=== PATIENT | female | born 1945 | race Caucasian/White ===

== ENCOUNTER 2020-03-03 04:04 | Emergency (ER) | payer MEDICARE, BC ==
[2020-03-03] MEDS ORDERED: Sodium Chloride 0.9% 1,000 ML IV ONE (04:29)
[2020-03-03] MEDS ORDERED: Metoprolol Tartrate 5 MG/5 ML SDV IVPUSH ONE (04:30)
[2020-03-03] MEDS ORDERED: Diphtheria,Pertussis(Acell),Tetanus Vaccine 0.5 ML Syringe IM ONE (04:36)
[2020-03-03 05:01] LABS: BLOOD UREA NITROGEN,BUN 11 mg/dL (7.0-18.0); CARBON DIOXIDE,CO2 28.4 mmol/L (21.0-32.0); CHLORIDE,CL 102 mmol/L (98-107); GLUCOSE RANDOM 158 mg/dL (74-106); POTASSIUM,K 4.1 mmol/L (3.5-5.1); SODIUM,NA 137 mmol/L (136-145)
[2020-03-03] MEDS ORDERED: Metoprolol Succinate 25 MG Tab.ER PO ONE (05:17)
--- NOTE | 2020-03-03 05:29 | CT ---
INDICATION: Fall, laceration near right eye. TECHNIQUE: CT head without contrast. COMPARISON: None. FINDINGS: CSF spaces: Within normal limits for age. Brain parenchyma: No intracranial bleed or mass effect. Peres-white differentiation is preserved. Moderate low density in the deep white matter. Skull base and calvarium: The visualized paranasal sinuses and mastoid air cells demonstrate no acute or significant findings. The visualized orbits are grossly unremarkable. No skull fractures. Right periorbital scalp hematoma. IMPRESSION: 1. Right periorbital scalp hematoma without calvarial fracture or intracranial bleed. 2. Nonspecific white matter disease, likely microangiopathy. Please note that all CT scans at this facility use dose modulation, iterative reconstruction, and/or weight-based dosing when appropriate to reduce radiation dose to as low as reasonably achievable. Dictated by Meño Flowers MD @ Mar 03 2020 5:25AM Signed by Dr. Meño Flowers @ Mar 03 2020 5:28AM
--- NOTE | 2020-03-03 05:42 | EDM.PDOC ---
ED HPI GENERAL MEDICAL PROBLEM - General Chief Complaint: Head Injury Stated Complaint: FALL Time Seen by Provider: 03/03/20 04:06 Source of Information: Reports: Patient History Limitations: Reports: No Limitations - History of Present Illness INITIAL COMMENTS - FREE TEXT/NARRATIVE: Patient is a 74-year-old female who fell while getting up to go the bathroom. Patient denies fainting. She was using her walker and somehow got tangled up and fell. She states she has trouble with her balance all the time. Patient denies any headache but has obvious contusion with laceration to her right cheek. She denies any neck pain or chest pain or palpitations. Patient presents with a fast heart rate in the 130s-140s but does not have any symptoms that she is having a fast heart rate. Patient has not been feeling lightheaded or short of breath or diaphoretic. Denies any injuries to any other part of her body other than her knee on the right side but has been able to walk since her fall. She is on a baby aspirin but no other blood thinners. She denies all neurological symptoms. She has had no bloody or tarry stools. Onset: Today, Sudden Location: Reports: Face Quality: Reports: Ache Severity: Mild Improves with: Reports: None Worsens with: Reports: None Context: Reports: Trauma Associated Symptoms: Reports: No Other Symptoms R cheek Pain Score (Numeric/FACES): 8 - Related Data Allergies Allergy/AdvReac Type Severity Reaction Status Date / Time No Known Allergies Allergy Verified 03/03/20 04:25 Home Meds: Home Meds Aspirin [Aspirin EC] 81 mg PO DAILY 03/03/20 [History] Metoprolol Succinate [Toprol XL] 25 mg PO BEDTIME #30 tab.er 03/03/20 [Rx] Past Medical History Musculoskeletal History: Reports: None - Past Surgical History Musculoskeletal Surgical History: Reports: Knee Replacement, Shoulder Replacement, Other (See Below) Other Musculoskeletal Surgeries/Procedures:: bilateral shoulders and bilateral knees Social & Family History - Family History Family Medical History: Noncontributory - Tobacco Use Smoking Status *Q: Never Smoker Second Hand Smoke Exposure: No - Caffeine Use Caffeine Use: Reports: Coffee - Recreational Drug Use Recreational Drug Use: No ED ROS GENERAL - Review of Systems Review Of Systems: Comprehensive ROS is negative, except as noted in HPI. ED EXAM, HEAD INJURY - Physical Exam Exam: See Below Exam Limited By: No Limitations General Appearance: Alert, No Apparent Distress Head: Facial Lacerations, Facial Swelling Neck: Non-Tender, Full Range of Motion Respiratory: No Respiratory Distress, Lungs Clear, Normal Breath Sounds Cardiovascular: No JVD, No Murmur, Tachycardia GI/Abdominal Exam: Normal Bowel Sounds, Soft, Non-Tender Back Exam: Normal Inspection Extremities: No Pedal Edema, Leg Pain, Redness, Other (All findings at right knee. She has full range of motion of the knee. 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 Patient tolerated procedure well. This was done under technique and her skin was cleaned with Betadine solution. Good approximation of wound edges. Patient CT of her head shows no brain injury. Her lab work was all within normal limits. Patient single dose of Lopressor 5 mg IV slowed her heart rate down to the 80s. Patient feels fine and I will discharge her home with a prescription for Toprol XL. She is given wound care discharge instructions and advised to return in 5 days for suture removal. Last Recorded V/S: Last Vital Signs Temp 36.0 C L 03/03/20 04:04 Pulse 111 H 03/03/20 05:05 Resp 20 03/03/20 05:05 BP 130/70 03/03/20 05:05 Pulse Ox 97 03/03/20 05:05 - Orders/Labs/Meds Orders: Active Orders 24 hr Category Date Time Status Vaccines to be Administered [RC] PER UNIT ROUTINE Care 03/03/20 04:36 Active UA W/MICROSCOPIC [URIN] Stat Lab 03/03/20 04:27 Ordered Sodium Chloride 0.9% [Normal Saline] 1,000 ml Med 03/03/20 04:29 Active IV .Bolus Medication Orders Sodium Chloride (Normal Saline) 1,000 mls @ 500 mls/hr IV .Bolus ONE Stop: 03/03/20 06:28 Last Admin: 03/03/20 04:36 Dose: 500 mls/hr Labs: Laboratory Tests 03/03/20 03/03/20 Range/Units 04:26 04:26 WBC 10.34 (4.0-11.0) K/uL RBC 4.91 (4.30-5.90) M/uL Hgb 16.7 H (12.0-16.0) g/dL Hct 49.9 H (36.0-46.0) % MCV 101.6 H (80.0-98.0) fL MCH 34.0 H (27.0-32.0) pg MCHC 33.5 (31.0-37.0) g/dL RDW Std Deviation 58.5 (28.0-62.0) fl RDW Coeff of Lazaro 16 H (11.0-15.0) % Plt Count 113 L (150-400) K/uL MPV 11.80 (7.40-12.00) fL Neut % (Auto) 50.0 (48.0-80.0) % Lymph % (Auto) 41.8 H (16.0-40.0) % [place] % (Auto) 7.0 (0.0-15.0) % Eos % (Auto) 0.9 (0.0-7.0) % Baso % (Auto) 0.3 (0.0-1.5) % Neut # (Auto) 5.2 (1.4-5.7) K/uL Lymph # (Auto) 4.3 H (0.6-2.4) K/uL [place] # (Auto) 0.7 (0.0-0.8) K/uL Eos # (Auto) 0.1 (0.0-0.7) K/uL Baso # (Auto) 0.0 (0.0-0.1) K/uL Nucleated RBC % 0.0 /100WBC Nucleated RBCs # 0 K/uL Sodium 137 (136-145) mmol/L Potassium 4.1 (3.5-5.1) mmol/L Chloride 102 (98-107) mmol/L Carbon Dioxide 28.4 (21.0-32.0) mmol/L BUN 11 (7.0-18.0) mg/dL Creatinine 1.1 H (0.6-1.0) mg/dL Est Cr Clr Drug Dosing TNP Estimated GFR (MDRD) 48.3 ml/min Glucose 158 H (74-106) mg/dL Calcium 10.7 H (8.5-10.1) mg/dL Total Bilirubin 1.1 H (0.2-1.0) mg/dL AST 122 H (15-37) IU/L ALT 49 (14-63) IU/L Alkaline Phosphatase 165 H (46-116) U/L Troponin I < 0.050 (0.000-0.056) ng/mL Total Protein 6.4 (6.4-8.2) g/dL Albumin 2.6 L (3.4-5.0) g/dL Globulin 3.8 (2.6-4.0) g/dL Albumin/Globulin Ratio 0.7 L (0.9-1.6) Meds: Medications Generic Name Dose Route Start Last Admin Trade Name Freq PRN Reason Stop Dose Admin Sodium Chloride 1,000 mls @ 500 mls/hr 03/03/20 04:29 03/03/20 04:36 Normal Saline IV 03/03/20 06:28 500 mls/hr .Bolus ONE Administration Discontinued Medications Generic Name Dose Route Start Last Admin Trade Name Freq PRN Reason Stop Dose Admin Diphtheria/Tetanus/Acell Pertussis 0.5 ml 03/03/20 04:36 03/03/20 04:42 Adacel IM 03/03/20 04:37 0.5 ml .ONCE ONE Administration Lidocaine HCl 5 ml 03/03/20 04:32 03/03/20 04:41 Xylocaine-Mpf 1% INJECT 03/03/20 04:33 5 ml ONETIME ONE Administration Metoprolol Succinate 25 mg 03/03/20 05:17 Toprol Xl PO 03/03/20 05:18 ONETIME ONE Metoprolol Tartrate 5 mg 03/03/20 04:30 03/03/20 04:37 Lopressor IVPUSH 03/03/20 04:31 5 mg ONETIME ONE Administration Departure - Departure Time of Disposition: 05:45 Disposition: Home, Self-Care 01 Condition: Good Clinical Impression: Laceration of face, Tachycardia - Discharge Information Instructions: Wound Care, Adult, Sinus Tachycardia Referrals: Jesse Sadler MD [Primary Care Provider] - Additional Instructions: Toprol as prescribed. Follow-up with PCP for recheck week. Suture removal in 5 days. Antibiotic ointment light coat twice a day. Return to ER sooner if any sign of infection. Ice pack to face for swelling. Tylenol as needed. Care Plan Goals: The following information is given to patients seen in the emergency department who are being discharged to home. This information is to outline your options for follow-up care. We provide all patients seen in our emergency department with a follow-up referral. The need for follow-up, as well as the timing and circumstances, are variable depending upon the specifics of your emergency department visit. If you don't have a primary care physician on staff, we will provide you with a referral. We always advise you to contact your personal physician following an emergency department visit to inform them of the circumstance of the visit and for follow-up with them and/or the need for any referrals to a consulting specialist. The emergency department will also refer you to a specialist when appropriate. This referral assures that you have the opportunity for follow-up care with a specialist. All of these measure are taken in an effort to provide you with optimal care, which includes your follow-up. Under all circumstances we always encourage you to contact your private physician who remains a resource for coordinating your care. When calling for follow-up care, please make the office aware that this follow-up is from your recent emergency room visit. If for any reason you are refused follow-up, please contact the [facility] Emergency Department at and asked to speak to the emergency department charge nurse. Sepsis Event Note - Evaluation Sepsis Screening Result: No Definite Risk - Focused Exam Vital Signs: Vital Signs Temp Pulse Pulse Resp BP BP Pulse Ox 03/03/20 05:05 111 H 20 130/70 97 03/03/20 04:37 137 H 123/75 03/03/20 04:04 36.0 C L 145 H 21 H 138/74 97 Date Exam was Performed: 03/03/20 Time Exam was Performed: 05:37 - My Orders Last 24 Hours: My Active Orders 03/03/20 04:27 UA W/MICROSCOPIC [URIN] Stat 03/03/20 04:29 Sodium Chloride 0.9% [Normal Saline] 1,000 ml IV .Bolus 03/03/20 04:36 Vaccines to be Administered [RC] PER UNIT ROUTINE - Assessment/Plan Last 24 Hours: My Active Orders 03/03/20 04:27 UA W/MICROSCOPIC [URIN] Stat 03/03/20 04:29 Sodium Chloride 0.9% [Normal Saline] 1,000 ml IV .Bolus 03/03/20 04:36 Vaccines to be Administered [RC] PER UNIT ROUTINE
== END 2020-03-03 06:02 | disposition home or self-care (01) ==
LOC: MW.ED 04:04
DX: S01.81XA Laceration without foreign body of other part of head, initial encounter (principal); Z23 Encounter for immunization; R00.0 Tachycardia, unspecified; Z79.82 Long term (current) use of aspirin; Z79.899 Other long term (current) drug therapy; W19.XXXA Unspecified fall, initial encounter
CPT/HCPCS: 12011; 36415; 70450; 80053; 84484; 85025; 90471; 90715; 93005; 96361; 96374; 99285; J2001; J3490; J7030; 99282

== ENCOUNTER 2020-04-01 11:18 | Emergency (ER) | payer MEDICARE, BC ==
[2020-04-01] MEDS ORDERED: Sodium Chloride 0.9% 10 ML Syringe FLUSH PRN (11:35)
[2020-04-01] MEDS ORDERED: Sodium Chloride 0.9% 2.5 ML Syringe FLUSH PRN (11:35)
[2020-04-01] MEDS ORDERED: Sodium Chloride 0.9% 10 ML SDV IV PRN (11:35)
--- NOTE | 2020-04-01 11:40 | EDM.PDOC ---
ED HPI GENERAL MEDICAL PROBLEM - General Chief Complaint: Neurological Problem Stated Complaint: STROKE CODE Time Seen by Provider: 04/01/20 11:20 - History of Present Illness INITIAL COMMENTS - FREE TEXT/NARRATIVE: HISTORY AND PHYSICAL: History of present illness: 74-year-old female who presents emergency department complaint of altered mental status. Multiple falls at home. Last time known well was yesterday in the afternoon before she started falling. She complains that she does not know why she is falling. She has some slurred speech. She appears slightly lethargic. She wakes up and stays awake mostly for the exam but then quickly falls asleep. Review of systems: A 10-point review of systems, other than pertinent positives and negatives as stated per HPI, is otherwise negative. Past medical history: As per history of present illness and as reviewed below otherwise noncontributory. Surgical history: As per history of present illness and as reviewed below otherwise noncontributory. Social history: No reported history of drug or alcohol abuse. Family history: As per history of present illness and as reviewed below otherwise noncontributory. Physical exam: VITAL SIGNS: Reviewed. GENERAL: Falls asleep easily. Eye opening to voice, slurred speech is mild, otherwise nonfocal and obeys commands HEAD: No signs of head trauma. EYES: Pupils are equal. Extraocular motions intact. EARS: Hearing grossly intact. MOUTH: Oropharynx is normal. NECK: No adenopathy, no JVD. CHEST: Chest with clear breath sounds bilaterally. No wheezes, rales, or rhonchi. However breath sounds are quite distant in the bases CARDIAC: Irregularly irregular and tachycardic rhythm. S1-S2 are present. I do not appreciate a murmur. VASCULAR: Peripheral pulses normal and equal in all extremities. ABDOMEN: Soft, without detectable tenderness. No sign of distention. No rebound or guarding, and no masses palpated. MUSCULOSKELETAL: Good range of motion of all major joints. Extremities without clubbing, cyanosis or edema. NEUROLOGIC EXAM: Alert and oriented x 3. No focal sensory or motor deficits. Speech normal. Follows commands. PSYCHIATRIC: Mood normal. SKIN: No rash or lesions. Initial Differential Diagnosis & Plan: The patient has altered mental status and I considered the following entities in the differential diagnosis: hypoglycemia, electrolyte imbalance, head trauma , intracranial bleed or mass, meningitis sepsis, transient ischemic attack or stroke, toxidrome/intoxication/medication effect, seizure or postictal state, hepatic encephalopathy, acid/base disturbance, hypercapnia. Suspect strokelike symptoms however I will also check for hypercapnia with an ABG. Code stroke was initiated. NIH is a 2. Definitive disposition and diagnosis as appropriate pending reevaluation and review of above. - Related Data Allergies Allergy/AdvReac Type Severity Reaction Status Date / Time No Known Allergies Allergy Verified 04/01/20 12:11 Home Meds: Home Meds Aspirin [Aspirin EC] 81 mg PO DAILY 03/03/20 [History] Metoprolol Succinate [Toprol XL] 25 mg PO BEDTIME #30 tab.er 03/03/20 [Rx] Nitrofurantoin Monohyd/M-Cryst [Macrobid 100 mg Capsule] 100 mg PO BID 5 Days # 10 capsule 04/01/20 [Rx] Past Medical History Musculoskeletal History: Reports: None - Past Surgical History Musculoskeletal Surgical History: Reports: Knee Replacement, Shoulder Replacement, Other (See Below) Other Musculoskeletal Surgeries/Procedures:: bilateral shoulders and bilateral knees Social & Family History - Family History Family Medical History: Noncontributory - Caffeine Use Caffeine Use: Reports: Coffee ED ROS GENERAL - Review of Systems Review Of Systems: See Below (noted) ED EXAM, NEURO - Physical Exam Exam: See Below (noted) ED NEURO PROCEDURES - Additional/Other Procedure(s) Other (Free Text) Procedure(s): Procedure Note: Physician placed IV Due to difficult or critical IV access situation I have placed an IV for treatment and circulatory access. Location: Right antecubital fossa, 20-gauge angiocatheter using ultrasound guidance second attempt. Complications: None PROCEDURE: Ultrasound guidance of needle placement Indication: Guidance of needle for procedure Performed and interpreted by myself Findings: 1. Targeted structure identified 2. Distance from the skin noted 3. Surrounding vascular and nerve structures noted Interpretation: Ultrasound guidance of needle to increase safety and accuracy of procedure. Signed by Fantasma Mcduffie M.D. EKG INTERPRETATION EKG Interpretation Comments: 12 lead EKG interpretation Obtained: April 01, 2020 at 11:40 AM Rhythm: Sinus tachycardia Rate: 115 Comfrey: Comfrey deviation Intervals: Normal ST/T Segments: No acute ischemic changes Interpretation: Sinus tachycardia with left axis deviation Course - Vital Signs Last Recorded V/S: Last Vital Signs Temp 96.6 F L 04/01/20 11:18 Pulse 113 H 04/01/20 11:18 Resp 17 04/01/20 11:18 BP 141/80 H 04/01/20 11:18 Pulse Ox 99 04/01/20 11:35 - Orders/Labs/Meds Orders: Active Orders 24 hr Category Date Time Status Assess Neurological Status [RC] ASDIRECTED Care 04/01/20 11:35 Active Bedrest [RC] ASDIRECTED Care 04/01/20 11:35 Active Blood Glucose Check, Bedside [RC] ONETIME Care 04/01/20 11:35 Active Cardiac Monitoring [RC] . DIRECTED Care 04/01/20 11:35 Active EKG Documentation Completion [RC] STAT Care 04/01/20 11:35 Active Head of Bed Elevation [RC] ASDIRECTED Care 04/01/20 11:35 Active Height and Weight [RC] UPON Care 04/01/20 11:35 Active Initiate Acute Stroke Protocol [RC] STAT Care 04/01/20 11:35 Active NIH Stroke Scale [RC] ASDIRECTED Care 04/01/20 11:35 Active Nursing Bedside Swallow Screen [RC] ASDIRECTED Care 04/01/20 11:35 Active Oxygen Therapy [RC] ASDIRECTED Care 04/01/20 11:35 Active Stroke Education, General [RC] Click to Edit Care 04/01/20 11:35 Active Vital Signs [RC] Q15M Care 04/01/20 11:35 Active Sodium Chloride 0.9% [Normal Saline] Med 04/01/20 11:35 Active 10 ml IV ASDIRECTED PRN Sodium Chloride 0.9% [Saline Flush] Med 04/01/20 11:35 Active 10 ml FLUSH ASDIRECTED PRN Sodium Chloride 0.9% [Saline Flush] Med 04/01/20 11:35 Active 2.5 ml FLUSH ASDIRECTED PRN Peripheral IV Insertion Adult [OM.PC] Stat Oth 04/01/20 11:35 Ordered Peripheral IV Insertion Adult [OM.PC] Stat Oth 04/01/20 11:35 Ordered Medication Orders Sodium Chloride (Saline Flush) 10 ml FLUSH ASDIRECTED PRN PRN Reason: Keep Vein Open Sodium Chloride (Saline Flush) 2.5 ml FLUSH ASDIRECTED PRN PRN Reason: Keep Vein Open Sodium Chloride (Normal Saline) 10 ml IV ASDIRECTED PRN PRN Reason: IV Use Labs: Laboratory Tests 04/01/20 04/01/20 04/01/20 Range/Units 12:23 12:23 12:23 WBC 12.03 H (4.0-11.0) K/uL RBC 4.75 (4.30-5.90) M/uL Hgb 16.8 H (12.0-16.0) g/dL Hct 49.1 H (36.0-46.0) % MCV 103.4 H (80.0-98.0) fL MCH 35.4 H (27.0-32.0) pg MCHC 34.2 (31.0-37.0) g/dL RDW Std Deviation 60.0 (28.0-62.0) fl RDW Coeff of Lazaro 16 H (11.0-15.0) % Plt Count 123 L (150-400) K/uL MPV 11.90 (7.40-12.00) fL Neut % (Auto) 66.9 (48.0-80.0) % Lymph % (Auto) 24.8 (16.0-40.0) % [place] % (Auto) 7.7 (0.0-15.0) % Eos % (Auto) 0.4 (0.0-7.0) % Baso % (Auto) 0.2 (0.0-1.5) % Neut # (Auto) 8.0 H (1.4-5.7) K/uL Lymph # (Auto) 3.0 H (0.6-2.4) K/uL [place] # (Auto) 0.9 H (0.0-0.8) K/uL Eos # (Auto) 0.1 (0.0-0.7) K/uL Baso # (Auto) 0.0 (0.0-0.1) K/uL Nucleated RBC % 0.0 /100WBC Nucleated RBCs # 0 K/uL INR 1.30 APTT 27.3 (18.6-31.3) SEC ABG pH (7.35-7.45) ABG pCO2 (35-45) mmHG ABG pO2 (75-100) mmHG ABG HCO3 (22-26) mEq/L ABG Total CO2 ABG Base Excess (-2.0-2.0) Sodium 135 L (136-145) mmol/L Potassium 4.5 (3.5-5.1) mmol/L Chloride 100 (98-107) mmol/L Carbon Dioxide 29.1 (21.0-32.0) mmol/L BUN 15 (7.0-18.0) mg/dL Creatinine 1.1 H (0.6-1.0) mg/dL Est Cr Clr Drug Dosing 37.57 mL/min Estimated GFR (MDRD) 48.3 ml/min Glucose 144 H (74-106) mg/dL Calcium 11.4 H (8.5-10.1) mg/dL Total Bilirubin 1.7 H (0.2-1.0) mg/dL AST 115 H (15-37) IU/L ALT 42 (14-63) IU/L Alkaline Phosphatase 175 H (46-116) U/L Troponin I < 0.050 (0.000-0.056) ng/mL Total Protein 6.3 L (6.4-8.2) g/dL Albumin 2.4 L (3.4-5.0) g/dL Globulin 3.9 (2.6-4.0) g/dL Albumin/Globulin Ratio 0.6 L (0.9-1.6) TSH 3rd Generation 4.80 H (0.36-3.74) uIU/mL Urine Color Urine Appearance Urine pH (5.0-8.0) Ur Specific [place] (1.001-1.035) Urine Protein (NEGATIVE) mg/dL Urine Glucose (UA) (NEGATIVE) mg/dL Urine Ketones (NEGATIVE) mg/dL Urine Occult Blood (NEGATIVE) Urine Nitrite (NEGATIVE) Urine Bilirubin (NEGATIVE) Urine Urobilinogen (<2.0) EU/dL Ur Leukocyte Esterase (NEGATIVE) Urine RBC (0-2/HPF) Urine WBC (0-5/HPF) Ur Epithelial Cells (NONE-FEW) Calcium Oxalate Crystal (NEGATIVE) Urine Bacteria (NEGATIVE) Urine Mucus (NONE-MOD) Ethyl Alcohol <3 mg/dL 04/01/20 04/01/20 Range/Units 12:55 15:36 WBC (4.0-11.0) K/uL RBC (4.30-5.90) M/uL Hgb (12.0-16.0) g/dL Hct (36.0-46.0) % MCV (80.0-98.0) fL MCH (27.0-32.0) pg MCHC (31.0-37.0) g/dL RDW Std Deviation (28.0-62.0) fl RDW Coeff of Lazaro (11.0-15.0) % Plt Count (150-400) K/uL MPV (7.40-12.00) fL Neut % (Auto) (48.0-80.0) % Lymph % (Auto) (16.0-40.0) % [place] % (Auto) (0.0-15.0) % Eos % (Auto) (0.0-7.0) % Baso % (Auto) (0.0-1.5) % Neut # (Auto) (1.4-5.7) K/uL Lymph # (Auto) (0.6-2.4) K/uL [place] # (Auto) (0.0-0.8) K/uL Eos # (Auto) (0.0-0.7) K/uL Baso # (Auto) (0.0-0.1) K/uL Nucleated RBC % /100WBC Nucleated RBCs # K/uL INR APTT (18.6-31.3) SEC ABG pH 7.466 H (7.35-7.45) ABG pCO2 39 (35-45) mmHG ABG pO2 65 L (75-100) mmHG ABG HCO3 28 H (22-26) mEq/L ABG Total CO2 23.8 ABG Base Excess 3.9 H (-2.0-2.0) Sodium (136-145) mmol/L Potassium (3.5-5.1) mmol/L Chloride (98-107) mmol/L Carbon Dioxide (21.0-32.0) mmol/L BUN (7.0-18.0) mg/dL Creatinine (0.6-1.0) mg/dL Est Cr Clr Drug Dosing mL/min Estimated GFR (MDRD) ml/min Glucose (74-106) mg/dL Calcium (8.5-10.1) mg/dL Total Bilirubin (0.2-1.0) mg/dL AST (15-37) IU/L ALT (14-63) IU/L Alkaline Phosphatase (46-116) U/L Troponin I (0.000-0.056) ng/mL Total Protein (6.4-8.2) g/dL Albumin (3.4-5.0) g/dL Globulin (2.6-4.0) g/dL Albumin/Globulin Ratio (0.9-1.6) TSH 3rd Generation (0.36-3.74) uIU/mL Urine Color YELLOW Urine Appearance CLEAR Urine pH 6.0 (5.0-8.0) Ur Specific [place] 1.010 (1.001-1.035) Urine Protein NEGATIVE (NEGATIVE) mg/dL Urine Glucose (UA) NEGATIVE (NEGATIVE) mg/dL Urine Ketones NEGATIVE (NEGATIVE) mg/dL Urine Occult Blood NEGATIVE (NEGATIVE) Urine Nitrite POSITIVE H (NEGATIVE) Urine Bilirubin NEGATIVE (NEGATIVE) Urine Urobilinogen 1.0 (<2.0) EU/dL Ur Leukocyte Esterase NEGATIVE (NEGATIVE) Urine RBC 0-2 (0-2/HPF) Urine WBC 0-3 (0-5/HPF) Ur Epithelial Cells OCCASIONAL (NONE-FEW) Calcium Oxalate Crystal RARE (NEGATIVE) Urine Bacteria 3+ H (NEGATIVE) Urine Mucus LIGHT (NONE-MOD) Ethyl Alcohol mg/dL Meds: Medications Generic Name Dose Route Start Last Admin Trade Name Freq PRN Reason Stop Dose Admin Sodium Chloride 10 ml 04/01/20 11:35 Saline Flush FLUSH ASDIRECTED PRN Keep Vein Open Sodium Chloride 2.5 ml 04/01/20 11:35 Saline Flush FLUSH ASDIRECTED PRN Keep Vein Open Sodium Chloride 10 ml 04/01/20 11:35 Normal Saline IV ASDIRECTED PRN IV Use Discontinued Medications Generic Name Dose Route Start Last Admin Trade Name Freq PRN Reason Stop Dose Admin Bupivacaine HCl 20 ml 04/01/20 15:50 Sensorcaine-Mpf 0.5% INJECT 04/01/20 15:51 ONETIME ONE Iopamidol 100 ml 04/01/20 15:13 04/01/20 15:17 Isovue Multipack-370 (76%) IVPUSH 04/01/20 15:14 100 ml ONETIME STA Administration - Re-Assessments/Exams Free Text/Narrative Re-Assessment/Exam: 06/04/20 16:04 Patient presented as a stroke code and was monitored in the emergency department. There is no evidence that the patient had an acute stroke. The cause of her decreased mental status is unclear. While she is here she is much more awake. She is quite insistent on going home. We will give her some Macrobid for her bacteriuria. She does not have pyuria. We will have her follow-up with her primary care doctor. The remainder of her labs are essentially normal. My diagnostic impression: 1. Acute altered mental status; resolved 2. Asymptomatic bacteriuria Agree bed. Offered admission. Patient is adamantly refusing. Departure - Departure Time of Disposition: 16:06 Disposition: Home, Self-Care 01 Clinical Impression: Weakness, Falls, Bacteriuria, asymptomatic - Discharge Information *PRESCRIPTION DRUG MONITORING PROGRAM REVIEWED*: Not Applicable *COPY OF PRESCRIPTION DRUG MONITORING REPORT IN PATIENT BANDAR: Not Applicable Instructions: Fatigue, Weakness, [id number], Asymptomatic Bacteriuria Referrals: Jesse Sadler MD [Primary Care Provider] - Forms: ED Department Discharge Additional Instructions: The following information is given to patients seen in the emergency department who are being discharged to home. This information is to outline your options for follow-up care. We provide all patients seen in our emergency department with a follow-up referral. The need for follow-up, as well as the timing and circumstances, are variable depending upon the specifics of your emergency department visit. If you don't have a primary care physician on staff, we will provide you with a referral. We always advise you to contact your personal physician following an emergency department visit to inform them of the circumstance of the visit and for follow-up with them and/or the need for any referrals to a consulting specialist. The emergency department will also refer you to a specialist when appropriate. This referral assures that you have the opportunity for follow-up care with a specialist. All of these measure are taken in an effort to provide you with optimal care, which includes your follow-up. Thank you for coming to the [facility] urgency department for your care today. It was Dr. Mcduffie's pleasure to take care of you. You were evaluated for possible stroke today given your weakness and fatigue when you arrived. There is no evidence of stroke. We were also concerned about infection and other causes. Your electrolyte panel, metabolic panel, and CBC are all essentially normal. You do have bacteria in your urine but no pus. We will give you a medication to help with that. We offered you admission today and you would like to go home. Please be careful as you are falling frequently. Please use her walker. Return for any other concerns. Under all circumstances we always encourage you to contact your private physician who remains a resource for coordinating your care. When calling for follow-up care, please make the office aware that this follow-up is from your recent emergency room visit. If for any reason you are refused follow-up, please contact the [facility] Emergency Department at and asked to speak to the emergency department charge nurse. Sepsis Event Note - Focused Exam Vital Signs: Vital Signs Temp Pulse Resp BP Pulse Ox Pulse Ox 04/01/20 11:35 99 04/01/20 11:18 96.6 F L 113 H 17 141/80 H 99 Date Exam was Performed: 04/01/20 Time Exam was Performed: 16:04 - My Orders Last 24 Hours: My Active Orders 04/01/20 11:35 Assess Neurological Status [RC] ASDIRECTED Bedrest [RC] ASDIRECTED Blood Glucose Check, Bedside [RC] ONETIME Cardiac Monitoring [RC] . DIRECTED EKG Documentation Completion [RC] STAT Head of Bed Elevation [RC] ASDIRECTED Height and Weight [RC] UPON Initiate Acute Stroke Protocol [RC] STAT NIH Stroke Scale [RC] ASDIRECTED Nursing Bedside Swallow Screen [RC] ASDIRECTED Oxygen Therapy [RC] ASDIRECTED Stroke Education, General [RC] Click to Edit Vital Signs [RC] Q15M Sodium Chloride 0.9% [Normal Saline] 10 ml IV ASDIRECTED PRN Sodium Chloride 0.9% [Saline Flush] 10 ml FLUSH ASDIRECTED PRN Sodium Chloride 0.9% [Saline Flush] 2.5 ml FLUSH ASDIRECTED PRN Peripheral IV Insertion Adult [OM.PC] Stat Peripheral IV Insertion Adult [OM.PC] Stat - Assessment/Plan Last 24 Hours: My Active Orders 04/01/20 11:35 Assess Neurological Status [RC] ASDIRECTED Bedrest [RC] ASDIRECTED Blood Glucose Check, Bedside [RC] ONETIME Cardiac Monitoring [RC] . DIRECTED EKG Documentation Completion [RC] STAT Head of Bed Elevation [RC] ASDIRECTED Height and Weight [RC] UPON Initiate Acute Stroke Protocol [RC] STAT NIH Stroke Scale [RC] ASDIRECTED Nursing Bedside Swallow Screen [RC] ASDIRECTED Oxygen Therapy [RC] ASDIRECTED Stroke Education, General [RC] Click to Edit Vital Signs [RC] Q15M Sodium Chloride 0.9% [Normal Saline] 10 ml IV ASDIRECTED PRN Sodium Chloride 0.9% [Saline Flush] 10 ml FLUSH ASDIRECTED PRN Sodium Chloride 0.9% [Saline Flush] 2.5 ml FLUSH ASDIRECTED PRN Peripheral IV Insertion Adult [OM.PC] Stat Peripheral IV Insertion Adult [OM.PC] Stat
--- NOTE | 2020-04-01 11:55 | CT ---
Head CT Technique: Multiple axial sections through the brain were obtained. Intravenous contrast was not utilized. Comparison: Prior head CT study of 03/03/20. Findings: Ventricles along with basal cisterns and sulci over convexities are mildly prominent. 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 Diminished density is noted within the periventricular white matter compatible with small vessel ischemic demyelination change. No other abnormal parenchymal densities are seen. No evidence of intracranial hemorrhage. No midline shift or mass-effect is seen. Minimal atherosclerotic calcification within the vertebral vessels and carotid siphon is seen. Bone window settings were reviewed. No acute calvarial finding is seen. Visualized paranasal sinuses and mastoid sinuses show nothing acute. Impression: 1. Senescent change as noted above. 2. No acute intracranial abnormality is appreciated. Note: Please correlate if patient's symptoms warrant further evaluation by MRI.
--- NOTE | 2020-04-01 13:11 | CR ---
Chest: Frontal view of the chest was obtained in AP projection. Comparison: No prior chest imaging is available. Heart size and mediastinum are within normal limits for AP technique. Lung markings are slightly increased. Findings could represent mild bronchitis or could also be chronic if patient has no acute pulmonary symptoms. 1 cm nodule is noted within the right mid to lower lung. Lungs otherwise are clear. Bony structures are grossly intact. Impression: 1. Lung markings mildly increased as described above. 2. 1 cm nodule within the right mid to lower lung, chest CT recommended to further evaluate. Diagnostic code #3 This report was dictated in MDT
[2020-04-01 13:17] LABS: BLOOD UREA NITROGEN,BUN 15 mg/dL (7.0-18.0); CARBON DIOXIDE,CO2 29.1 mmol/L (21.0-32.0); CHLORIDE,CL 100 mmol/L (98-107); GLUCOSE RANDOM 144 mg/dL (74-106); POTASSIUM,K 4.5 mmol/L (3.5-5.1); SODIUM,NA 135 mmol/L (136-145)
[2020-04-01] MEDS ORDERED: Iopamidol 755 MG/ML 500 ML Multipack Bottle IVPUSH STA (15:13)
--- NOTE | 2020-04-01 15:33 | CT ---
CT angiogram of brain Technique: Multiple axial sections through the brain were obtained. Intravenous contrast was utilized during the arterial phase. Multiple MIP images were obtained. Findings: Right A1 segment is somewhat narrowed which most likely represents mild atheromatous change. Left A1 segment is patent. Both anterior cerebral arteries are patent. Carotid siphon appears to be patent. Normal appearance of the middle cerebral arteries is noted. Dominant left vertebral artery is seen. Both distal vertebral arteries are patent and the basilar and into the posterior cerebral arteries. No other areas of narrowing are seen. No discrete aneurysm is appreciated. Impression: 1. Mild atherosclerotic narrowing of the right A1 segment. 2. Dominant left vertebral artery which is considered a normal variant. 3. No additional abnormality is seen on CT angiogram study of the brain. Diagnostic code #2 This report was dictated in MDT
--- NOTE | 2020-04-01 15:35 | CT ---
CT angiogram of neck (without and with intravenous contrast) Technique: Noncontrast imaging of the neck initially obtained. Intravenous contrast was given and imaging obtained during the arterial phase through the neck. Findings: Larger size of the left vertebral artery is seen compatible with dominant left vertebral artery. Smaller right vertebral artery is patent. No focal stenosis is seen within either vertebral artery. Both common cough carotid arteries are patent with patent external and internal carotid arteries. There is only minimal calcified plaque within the right carotid bulb. Internal carotid arteries are patent into the carotid siphon. No dissection is seen. Cervical spine shows diffuse degenerative change. Impression: 1. Diffuse degenerative change within the cervical spine. 2. Dominant left vertebral artery. Minimal calcified plaque within the right carotid bulb. 3. CT angiogram of the neck study is otherwise unremarkable. Diagnostic code #2 This report was dictated in MDT
[2020-04-01] MEDS ORDERED: Bupivacaine 0.5% 10 ML SDV INJECT ONE (15:50)
== END 2020-04-01 16:40 | disposition home or self-care (01) ==
LOC: MW.ED 11:18
DX: R53.1 Weakness (principal); R82.71 Bacteriuria; Z91.81 History of falling; Z79.82 Long term (current) use of aspirin; Z79.899 Other long term (current) drug therapy
CPT/HCPCS: 36600; 70450; 70496; 70498; 71045; 80053; 80307; 81001; 82803; 84443; 84484; 85025; 85610; 85730; 93005; 99285; Q9967; 99283

== ENCOUNTER 2020-04-08 14:45 | Inpatient (IN) | payer MEDICARE, BC ==
--- NOTE | 2020-04-08 16:24 | PCM.HP.2 ---
H&P History of Present Illness - General Date of Service: 04/08/20 Admit Problem/Dx: Admission Diagnosis/Problem Admission Diagnosis/Problem UTI (urinary tract infection), uncomplicated - History of Present Illness Initial Comments - Free Text/Narative: 74 yo female who was directly admitted from Dr. Su's clinic after presenting with complaints of generalized weakness, loss of apatite, and increasing confusion. Patient has recently completed a five day course of antibiotics for a UTI which she was prescribed to by ED physician. She was also started on lasix for lower leg swelling last week. She denies any shortness of breath, chest pain, fevers, or chills. In follow up with Dr. Su today he noted she was still slow to respond normally to questions and was still reporting no improvement in her energy. Patient has no concerns and does not think much is wrong with her. Dr. Su reported a calcium level of 11 and elevated LFTs. 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: Musculoskeletal History: Reports: Arthritis Dermatologic History: Reports: Other (See Below) Other Dermatologic History: redness to abd folds - Infectious Disease History Infectious Disease History: Reports: Chicken Pox, Measles - Past Surgical History HEENT Surgical History: Reports: Naso-Sinus Surgery Other Cardiovascular Surgeries/Procedures: Edema Female Surgical History: Reports: Hysterectomy Musculoskeletal Surgical History: Reports: Hip Replacement, Knee Replacement Other Musculoskeletal Surgeries/Procedures:: bilateral hips and bilateral knees Social & Family History - Family History Family Medical History: Noncontributory - Tobacco Use Smoking Status *Q: Never Smoker Second Hand Smoke Exposure: No - Caffeine Use Caffeine Use: Reports: Coffee - Recreational Drug Use Recreational Drug Use: No H&P Review of Systems - Review of Systems: Review Of Systems: Comprehensive ROS is negative, except as noted in HPI. Exam - Exam Exam: See Below - Vital Signs Vital Signs: Last Vital Signs Temp 37.3 C 04/08/20 14:57 Pulse 118 H 04/08/20 14:57 Resp 20 04/08/20 14:57 BP 144/68 H 04/08/20 14:57 Pulse Ox 94 L 04/08/20 14:57 Weight: 122.198 kg - Exam General: Alert, Cooperative HEENT: Mucosa Moist & [place] Neck: Supple Lungs: Clear to Auscultation, Normal Respiratory Effort Cardiovascular: Regular Rate, Regular Rhythm GI/Abdominal Exam: Normal Bowel Sounds, Soft, Non-Tender Extremities: Other (+2 leg edema) Skin: Warm, Dry, Intact, Other (large area of erythema under panus on flank bilaterally ) - Patient Data Result Diagrams: 04/09/20 05:26 04/09/20 05:26 Sepsis Event Note - Evaluation Sepsis Screening Result: No Definite Risk - Focused Exam Vital Signs: Vital Signs Temp Pulse Resp BP Pulse Ox 04/08/20 14:57 37.3 C 118 H 20 144/68 H 94 L Date Exam was Performed: 04/09/20 Time Exam was Performed: 15:29 Problem List Initiated/Reviewed/Updated: Yes Orders Last 24hrs: Active Orders 24 hr Category Date Time Status Patient Status [ADT] Routine ADT 04/08/20 16:15 Ordered Antiembolic Devices [RC] PER UNIT ROUTINE Care 04/08/20 16:17 Ordered Oxygen Therapy [RC] PRN Care 04/08/20 16:15 Ordered VTE/DVT Education [RC] PER UNIT ROUTINE Care 04/08/20 16:15 Ordered Vital Signs [RC] Q4H Care 04/08/20 16:15 Ordered Regular Diet [DIET] Diet 04/08/20 Breakfast Ordered Abdomen Ltd [US] Routine Exams 04/08/20 16:12 Ordered Abdomen Pelvis wo Cont [CT] Routine Exams 04/08/20 16:12 Ordered Chest wo Cont [CT] Routine Exams 04/08/20 16:12 Ordered Echo Comp wo Cont [US] Routine Exams 04/08/20 16:12 Ordered Venous Doppler Lwr Ext Bi [US] Routine Exams 04/08/20 16:12 Ordered CBC W/O DIFF,HEMOGRAM [HEME] AM Lab 04/09/20 05:11 Ordered COMPREHENSIVE METABOLIC PN,CMP [CHEM] AM Lab 04/09/20 05:11 Ordered COMPREHENSIVE METABOLIC PN,CMP [CHEM] Routine Lab 04/08/20 16:12 Ordered LIPASE [CHEM] Routine Lab 04/08/20 16:12 Ordered Nystatin [Nystop] Med 04/08/20 22:00 Ordered 1 gm TOP TID cefTRIAXone [Rocephin] Med 04/08/20 16:30 Ordered 1 gm IVPUSH Q24H Sequential Compression Device [OM.PC] Per Unit Routine Oth 04/08/20 16:16 Ordered Resuscitation Status Routine Resus Stat 04/08/20 16:15 Ordered Medication Orders Ceftriaxone Sodium (Rocephin) 1 gm IVPUSH Q24H [facility] Nystatin (Nystop) 1 gm TOP TID [facility] Assessment/Plan Comment:: 74 yo female admitted for UTI and cellulitis. UTI: [facility] has sent urine for culture, Will treat with IV Rocephin abdominal wall cellulitis: treating with Rocephin and nystatin powder bilateral leg edema: will check echocardiogram, leg dopplars, Mild transaminitis/mild hypercalcemia: I suspect patient may be intravascularly , will gently hydrate and hold lasix, liver ultrasound ordered.
[2020-04-08] MEDS ORDERED: Sodium Chloride 0.9% 1,000 ML IV SCH (16:30)
[2020-04-08] MEDS ORDERED: cefTRIAXone 1 GM Vial IVPUSH SCH (16:30)
[2020-04-08 17:15] LABS: CARBON DIOXIDE,CO2 29.8 mmol/L (21.0-32.0); POTASSIUM,K 4.6 mmol/L (3.5-5.1)
--- NOTE | 2020-04-08 17:26 | CT ---
CT chest Technique: Multiple axial sections through the chest were obtained. Reconstructed coronal and sagittal images were obtained. Intravenous contrast not utilized. Findings: Small mediastinal lymph nodes are seen measuring within normal limits. Calcified lymph nodes are noted within the subcarinal region and right hilar region. No pericardial thickening is seen. Aorta shows atherosclerotic calcification without aneurysm. Multiple pulmonary nodules are seen within both lungs. Largest nodule on the left side measures 1.0 cm in size. Largest nodule on the right side measures 1.0 cm. No acute parenchymal change otherwise seen. Bone window settings were reviewed. Degenerative change is noted within the spine. No acute osseous finding is seen. Impression: 1. Multiple nodules within the chest have the appearance of metastatic lung disease. 2. Other findings believed to be incidental as described above. Diagnostic code #9 This report was dictated in MDT
--- NOTE | 2020-04-08 17:26 | CT ---
CT abdomen and pelvis Technique: CT abdomen and pelvis Technique: Multiple axial sections were obtained from above the dome of the diaphragm inferiorly through the pubic symphysis. Intravenous and oral contrast not utilized. Comparison: No previous study. Findings: Multiple low density lesions are seen within the right and left lobes of the liver. Findings are most suspicious for metastatic disease. Small amount of fluid is seen around the spleen and the liver. Gallbladder is dilated. No discrete adrenal abnormality is seen. Kidneys show no hydronephrosis. Minimal nonobstructing stone noted within the lower right kidney measuring 1 or 2 mm. Pancreas shows no discrete abnormality. Aorta shows mild atherosclerotic change which continues into the iliac vessels without aneurysm. No retroperitoneal adenopathy is appreciated. No discrete mesenteric abnormalities are seen. No pelvic mass or adenopathy is seen. Pelvis is poorly seen due artifact from bilateral hip prosthesis. Appendix is not definitely visualized. Degenerative change is noted throughout the spine. Mild compression deformity seen with anterior wedging at L3. Prominent posterior spurring noted at L2-3. No acute osseous finding is seen. Impression: 1. Less than optimal study due to lack of intravenous and oral contrast. 2. Probable liver metastatic disease with multiple low density lesions within right and left lobes. 2. Small amount of ascites around the liver and spleen is noted. 3. Artifact within the pelvis from bilateral hip prosthesis. 4. Degenerative change within the spine as noted above. Diagnostic code #9 This report was dictated in MDT
[2020-04-08] MEDS: cefTRIAXone 1 GM in Premix Bag 1 BAG IV SCH (18:06)
--- NOTE | 2020-04-08 18:12 | US ---
Bilateral lower extremity deep venous ultrasound: Duplex and color Doppler evaluation was obtained of the right and left common femoral, superficial femoral, popliteal, posterior tibial and peroneal veins. Normal compression is seen. Normal Doppler blood flow appears to be present. Impression: 1. No evidence of deep venous thrombosis is seen within either the right or left lower extremities. Diagnostic code #1 This report was dictated in MDT
--- NOTE | 2020-04-08 18:20 | US ---
Limited abdominal ultrasound: Multiple real-time images of the upper right abdomen were obtained. Comparison: Previous CT study performed on the same day. Findings: Gallbladder is dilated and shows sludge. Liver is echogenic showing multiple masses as noted on CT exam. Gallbladder wall is minimally thickened which is not unusual with ascites. No biliary duct dilatation is seen. Right kidney measures 11.1 cm in length and shows no hydronephrosis or mass. Visualized portions of the pancreas show no discrete abnormality. Inferior vena cava is patent. Aorta shows no aneurysm. Impression: 1. Distended gallbladder showing a mild amount of sludge without gallstones. Gallbladder wall slightly thickened which is not unusual with ascites. No biliary duct dilatation is seen. 2. Liver masses as noted on CT exam suspicious for metastatic disease. 3. No additional abnormality is appreciated on right upper quadrant abdominal ultrasound. Diagnostic code #9 This report was dictated in MDT
[2020-04-08] MEDS: Nystatin Topical Powder 15 GM Bottle TOP SCH (22:25)
[2020-04-08] MEDS ORDERED: LORazepam 1 MG Tab PO PRN (23:21)
[2020-04-09] MEDS: Nystatin Topical Powder 15 GM Bottle TOP SCH ×3 (05:57→21:29)
[2020-04-09 06:29] LABS: POTASSIUM,K 3.8 mmol/L (3.5-5.1)
[2020-04-09] MEDS: cefTRIAXone 1 GM in Premix Bag 1 BAG IV SCH (16:29)
[2020-04-10] MEDS: Nystatin Topical Powder 15 GM Bottle TOP SCH ×3 (06:32→21:39)
--- NOTE | 2020-04-10 12:25 | PCM.PN ---
- General Info Date of Service: 04/09/20 - Patient Data Vitals - Most Recent: Last Vital Signs Temp 36.7 C 04/10/20 09:33 Pulse 87 04/10/20 09:33 Resp 18 04/10/20 09:33 BP 122/57 L 04/10/20 09:33 Pulse Ox 92 L 04/10/20 09:33 Weight - Most Recent: 122.198 kg I&O - Last 24 Hours: Intake & Output 04/09/20 04/10/20 04/10/20 22:59 06:59 14:59 Intake Total 120 650 Output Total 500 450 Balance -380 200 Med Orders - Current: Current Medications Ceftriaxone Sodium/Dextrose 1 (gm/ Premix) 50 mls @ 100 mls/hr IV Q24H [facility] Last Admin: 04/09/20 16:29 Dose: 100 mls/hr Lorazepam (Ativan) 1 mg PO BEDTIME PRN PRN Reason: Insomnia Last Admin: 04/09/20 01:23 Dose: 1 mg Nystatin (Nystop) 1 gm TOP TID [facility] Last Admin: 04/10/20 06:32 Dose: 1 applic Discontinued Medications Sodium Chloride (Normal Saline) 1,000 mls @ 75 mls/hr IV Q13H [facility] Stop: 04/09/20 05:29 Last Admin: 04/08/20 18:01 Dose: 75 mls/hr - Exam Neck: Supple Lungs: Clear to Auscultation, Normal Respiratory Effort Cardiovascular: Regular Rate, Regular Rhythm GI/Abdominal Exam: Normal Bowel Sounds, Soft, Non-Tender Extremities: Pedal Edema (+1) Skin: Warm, Dry, Intact Neurological: No New Focal Deficit Sepsis Event Note - Evaluation Sepsis Screening Result: No Definite Risk - Focused Exam Vital Signs: Vital Signs Temp Pulse Resp BP Pulse Ox 04/10/20 09:33 36.7 C 87 18 122/57 L 92 L 04/10/20 04:03 95 04/10/20 04:00 37.1 C 95 18 120/60 88 L Date Exam was Performed: 04/12/20 Time Exam was Performed: 19:57 - Problem List Review Problem List Initiated/Reviewed/Updated: Yes - My Orders Last 24 Hours: My Active Orders 04/09/20 16:12 Echo Comp wo Cont [US] Routine - Plan Plan:: 74 yo female admitted for UTI and cellulitis, found to multiple lesions of liver and lungs suspicious for metastatic disease. Spoke with Dr. Sadler who encouraged obtaining biopsy. Fax referral to [facility] for liver biopsy UTI:continue IV Rocephin abdominal wall cellulitis: treating with Rocephin and nystatin powder
--- NOTE | 2020-04-10 12:32 | PCM.PN ---
- General Info Date of Service: 04/10/20 - Review of Systems Systems Review Comment:: no new concerns - Patient Data Vitals - Most Recent: Last Vital Signs Temp 36.7 C 04/10/20 09:33 Pulse 87 04/10/20 09:33 Resp 18 04/10/20 09:33 BP 122/57 L 04/10/20 09:33 Pulse Ox 92 L 04/10/20 09:33 Weight - Most Recent: 122.198 kg I&O - Last 24 Hours: Intake & Output 04/09/20 04/10/20 04/10/20 22:59 06:59 14:59 Intake Total 120 650 Output Total 500 450 Balance -380 200 Med Orders - Current: Current Medications Ceftriaxone Sodium/Dextrose 1 (gm/ Premix) 50 mls @ 100 mls/hr IV Q24H [facility] Last Admin: 04/09/20 16:29 Dose: 100 mls/hr Lorazepam (Ativan) 1 mg PO BEDTIME PRN PRN Reason: Insomnia Last Admin: 04/09/20 01:23 Dose: 1 mg Nystatin (Nystop) 1 gm TOP TID [facility] Last Admin: 04/10/20 06:32 Dose: 1 applic Discontinued Medications Sodium Chloride (Normal Saline) 1,000 mls @ 75 mls/hr IV Q13H [facility] Stop: 04/09/20 05:29 Last Admin: 04/08/20 18:01 Dose: 75 mls/hr - Exam General: Alert, Oriented Lungs: Clear to Auscultation, Normal Respiratory Effort Cardiovascular: Regular Rate, Regular Rhythm GI/Abdominal Exam: Soft, Non-Tender, No Distention Extremities: Pedal Edema (+1) Sepsis Event Note - Evaluation Sepsis Screening Result: No Definite Risk - Focused Exam Vital Signs: Vital Signs Temp Pulse Resp BP Pulse Ox 04/10/20 09:33 36.7 C 87 18 122/57 L 92 L 04/10/20 04:03 95 04/10/20 04:00 37.1 C 95 18 120/60 88 L Date Exam was Performed: 04/10/20 Time Exam was Performed: 12:25 - Problem List Review Problem List Initiated/Reviewed/Updated: Yes - My Orders Last 24 Hours: My Active Orders 04/09/20 16:12 Echo Comp wo Cont [US] Routine - Plan Plan:: 74 yo female admitted for UTI and cellulitis, found to multiple lesions of liver and lungs suspicious for metastatic disease. UTI:continue IV Rocephin abdominal wall cellulitis: treating with Rocephin and nystatin powder
[2020-04-10 13:17] LABS: CARBON DIOXIDE,CO2 29.6 mmol/L (21.0-32.0)
[2020-04-10] MEDS: Heparin Sodium 5,000 Units/ML Vial SUBCUT SCH ×2 (13:17→21:24)
[2020-04-10] MEDS: cefTRIAXone 1 GM in Premix Bag 1 BAG IV SCH (16:02)
[2020-04-11] MEDS: Heparin Sodium 5,000 Units/ML Vial SUBCUT SCH ×3 (05:11→20:02)
[2020-04-11] MEDS: Nystatin Topical Powder 15 GM Bottle TOP SCH ×3 (05:17→22:44)
[2020-04-11 09:45] LABS: CARBON DIOXIDE,CO2 30.6 mmol/L (21.0-32.0); POTASSIUM,K 4.2 mmol/L (3.5-5.1)
--- NOTE | 2020-04-11 11:27 | PCM.PN ---
- General Info Date of Service: 04/11/20 - Patient Data Vitals - Most Recent: Last Vital Signs Temp 36.2 C 04/11/20 08:07 Pulse 95 04/11/20 08:07 Resp 16 04/11/20 08:07 BP 122/62 04/11/20 08:07 Pulse Ox 97 04/11/20 08:07 Weight - Most Recent: 122.198 kg I&O - Last 24 Hours: Intake & Output 04/10/20 04/11/20 04/11/20 22:59 06:59 14:59 Intake Total 650 350 Output Total 450 500 Balance 200 -150 Lab Results Last 24 Hours: Laboratory Results - last 24 hr 04/10/20 04/10/20 04/11/20 Range/Units 12:48 12:48 09:18 WBC 11.64 H 9.84 (4.0-11.0) K/uL RBC 4.42 4.44 (4.30-5.90) M/uL Hgb 15.5 15.6 (12.0-16.0) g/dL Hct 45.7 45.4 (36.0-46.0) % MCV 103.4 H 102.3 H (80.0-98.0) fL MCH 35.1 H 35.1 H (27.0-32.0) pg MCHC 33.9 34.4 (31.0-37.0) g/dL RDW Std Deviation 60.0 59.3 (28.0-62.0) fl RDW Coeff of Lazaro 16 H 16 H (11.0-15.0) % Plt Count 160 145 L (150-400) K/uL MPV 11.90 11.90 (7.40-12.00) fL Neut % (Auto) 66.4 62.9 (48.0-80.0) % Lymph % (Auto) 23.3 27.3 (16.0-40.0) % [place] % (Auto) 9.3 8.5 (0.0-15.0) % Eos % (Auto) 0.8 0.9 (0.0-7.0) % Baso % (Auto) 0.2 0.4 (0.0-1.5) % Neut # (Auto) 7.7 H 6.2 H (1.4-5.7) K/uL Lymph # (Auto) 2.7 H 2.7 H (0.6-2.4) K/uL [place] # (Auto) 1.1 H 0.8 (0.0-0.8) K/uL Eos # (Auto) 0.1 0.1 (0.0-0.7) K/uL Baso # (Auto) 0.0 0.0 (0.0-0.1) K/uL Nucleated RBC % 0.0 0.0 /100WBC Nucleated RBCs # 0 0 K/uL Sodium 135 L (136-145) mmol/L Potassium 4.0 (3.5-5.1) mmol/L Chloride 99 (98-107) mmol/L Carbon Dioxide 29.6 (21.0-32.0) mmol/L BUN 19 H (7.0-18.0) mg/dL Creatinine 1.1 H (0.6-1.0) mg/dL Est Cr Clr Drug Dosing 37.57 mL/min Estimated GFR (MDRD) 48.3 ml/min Glucose 160 H (74-106) mg/dL Calcium 10.9 H (8.5-10.1) mg/dL 04/11/20 Range/Units 09:18 WBC (4.0-11.0) K/uL RBC (4.30-5.90) M/uL Hgb (12.0-16.0) g/dL Hct (36.0-46.0) % MCV (80.0-98.0) fL MCH (27.0-32.0) pg MCHC (31.0-37.0) g/dL RDW Std Deviation (28.0-62.0) fl RDW Coeff of Lazaro (11.0-15.0) % Plt Count (150-400) K/uL MPV (7.40-12.00) fL Neut % (Auto) (48.0-80.0) % Lymph % (Auto) (16.0-40.0) % [place] % (Auto) (0.0-15.0) % Eos % (Auto) (0.0-7.0) % Baso % (Auto) (0.0-1.5) % Neut # (Auto) (1.4-5.7) K/uL Lymph # (Auto) (0.6-2.4) K/uL [place] # (Auto) (0.0-0.8) K/uL Eos # (Auto) (0.0-0.7) K/uL Baso # (Auto) (0.0-0.1) K/uL Nucleated RBC % /100WBC Nucleated RBCs # K/uL Sodium 136 (136-145) mmol/L Potassium 4.2 (3.5-5.1) mmol/L Chloride 101 (98-107) mmol/L Carbon Dioxide 30.6 (21.0-32.0) mmol/L BUN 17 (7.0-18.0) mg/dL Creatinine 1.0 (0.6-1.0) mg/dL Est Cr Clr Drug Dosing 41.33 mL/min Estimated GFR (MDRD) 53.9 ml/min Glucose 109 H (74-106) mg/dL Calcium 10.8 H (8.5-10.1) mg/dL Med Orders - Current: Current Medications Heparin Sodium (Porcine) (Heparin Sodium) 5,000 units SUBCUT Q8H [facility] Last Admin: 04/11/20 05:11 Dose: 5,000 units Ceftriaxone Sodium/Dextrose 1 (gm/ Premix) 50 mls @ 100 mls/hr IV Q24H [facility] Last Admin: 04/10/20 16:02 Dose: 100 mls/hr Lorazepam (Ativan) 1 mg PO BEDTIME PRN PRN Reason: Insomnia Last Admin: 04/09/20 01:23 Dose: 1 mg Nystatin (Nystop) 1 gm TOP TID [facility] Last Admin: 04/11/20 05:17 Dose: 1 applic Discontinued Medications Sodium Chloride (Normal Saline) 1,000 mls @ 75 mls/hr IV Q13H [facility] Stop: 04/09/20 05:29 Last Admin: 04/08/20 18:01 Dose: 75 mls/hr - Exam General: Alert, Oriented HEENT: Mucous Membr. Moist/[place] Neck: Supple Lungs: Clear to Auscultation, Normal Respiratory Effort Cardiovascular: Regular Rate, Regular Rhythm GI/Abdominal Exam: Normal Bowel Sounds, Soft, Non-Tender, No Distention Extremities: Non-Tender, Pedal Edema (+1) Skin: Warm, Dry, Intact Neurological: No New Focal Deficit Sepsis Event Note - Evaluation Sepsis Screening Result: No Definite Risk - Focused Exam Vital Signs: Vital Signs Temp Pulse Resp BP BP Pulse Ox 04/11/20 08:07 36.2 C 95 16 122/62 97 04/11/20 04:00 36.6 C 97 18 135/75 95 04/11/20 00:00 36.6 C 95 18 126/60 95 Date Exam was Performed: 04/11/20 Time Exam was Performed: 11:25 - Problem List Review Problem List Initiated/Reviewed/Updated: Yes - My Orders Last 24 Hours: My Active Orders 04/10/20 12:45 Heparin Sodium 5,000 units SUBCUT Q8H - Plan Plan:: 74 yo female admitted for UTI and cellulitis, found to multiple lesions of liver and lungs suspicious for metastatic disease. UTI:continue IV Rocephin abdominal wall cellulitis: treating with Rocephin and nystatin powder anticipate discharge home tomorrow
[2020-04-11] MEDS: cefTRIAXone 1 GM in Premix Bag 1 BAG IV SCH (16:53)
[2020-04-11] MEDS ORDERED: Docusate Sodium 100 MG Cap PO PRN (17:32)
[2020-04-12] MEDS: Heparin Sodium 5,000 Units/ML Vial SUBCUT SCH (04:31)
[2020-04-12] MEDS: Nystatin Topical Powder 15 GM Bottle TOP SCH (04:59)
--- NOTE | 2020-04-12 10:51 | PCM.DCSUM1 ---
Discharge Summary - Hospital Course Brief History: 74 yo female who was directly admitted from Dr. Sadler's clinic after presenting with complaints of generalized weakness, loss of appetite, and increasing confusion. Patient has recently completed a five day course of antibiotics for a UTI which she was prescribed to by ED physician. She was also started on lasix for lower leg swelling last week. She denies any shortness of breath, chest pain, fevers, or chills. In follow up with Dr. Sadler today he noted she was still slow to respond normally to questions and was still reporting no improvement in her energy. Patient has no concerns and does not think much is wrong with her. Dr. Sadler reported a calcium level of 11 and elevated LFTs. Diagnosis: Stroke: No Modified [place] Scale: No Symptoms at All Modified [place] Scale Score: 0 - Discharge Data Discharge Date: 04/12/20 Discharge Disposition: Home, Home Health Agency Condition: Good - Referral to Home Health Date of Face to Face Encounter: 04/12/20 Reason for Homebound Status: Pat is homebound needing caregiver and assistive device to ambulate safely within her home as well as to leave the house for appointments Primary Care Physician: PCP Unknown Skilled Need: pat is in need of long-term care to monitor medications as well as assess skin and leg swelling. She is in need of bathing assistance as well. She is in need of PT to evaluate and treat for unsteady and weak gait. She should have home safety evaluation as well per OT and evaluate and treat for ADLs. - Patient Summary/Data Consults: Consultations 04/08/20 23:21 PT Evaluation and Treatment [CONS] Routine Hospital Course: Admitting diagnoses: UTI AMS Confusion Hypercalcemia Discharge Diagnoses: UTI abdominal wall cellulitis Metastatic disease, liver and lung Pat was admitted secondary to UTI, concerns for AMS and slowness and hypercalcemia. She was noted to also have abdominal wall cellulitis with secondary ruby. She was treated with IVFs and Rocephin along with Nystatin. CT abdomen and pelvis and chest CT obtained which revealed liver and lung nodules. Labwork has improved. [place] Dr Sadler to set this up. Hypercalcemia improved to 10 with IVF hydration. This is likely secondary to metastatic disease. She Will be discharged home to day with with Home health. She will have follow up with Dr Sadler. She denies any needs today. Contnue Keflex and Nystatin. Again, CT guided liver biopsy will be scheduled through Dr Sadler. She is to return to ED or clinic if concerns should arise. at bedside this morning, all questions and concerns addressed. - Patient Instructions Diet: Heart Healthy Diet Activity: No Strenuous Activities Driving: Do Not Drive Showering/Bathing: May Shower Notify Provider of: Fever, Increased Pain, Swelling and Redness, Drainage, Nausea and/or Vomiting Other/Special Instructions: Keep abdominal fold dry, place thin towl or pillow case to help wick moisture. Apply Nystatin powder three times daily. Before new application wash ared with mild soap and water. Dry thoroughly and reapply powder. Dr Sadler will be contacted by [place] to arrange liver biopsy. Dr Sadler notified by [facility] regarding this. - Discharge Plan *PRESCRIPTION DRUG MONITORING PROGRAM REVIEWED*: Not Applicable *COPY OF PRESCRIPTION DRUG MONITORING REPORT IN PATIENT BANDAR: Not Applicable Prescriptions/Med Rec: cephALEXin [Keflex] 500 mg PO BID #14 capsule Nystatin [Nystop] 1 applic TOP TID #1 bottle Home Medications: Home Meds Aspirin [Aspirin EC] 81 mg PO DAILY 03/03/20 [History] Metoprolol Succinate [Toprol XL] 25 mg PO BEDTIME #30 tab.er 03/03/20 [Rx] Furosemide 20 mg PO DAILY 04/08/20 [History] Nystatin [Nystop] 1 applic TOP TID #1 bottle 04/12/20 [Rx] cephALEXin [Keflex] 500 mg PO BID #14 capsule 04/12/20 [Rx] Oxygen Therapy Mode: Room Air Patient Handouts: Nystatin topical powder, Urinary Tract Infection, Adult, Easy -to-Read, Cephalexin tablets or capsules, Delirium Referrals: [facility] [Outside] Jesse Salder MD [Physician] - 04/19/20 10:00 am (Dr. Sadler will be contacting you about the CT appointment details in [facility]. ) - Discharge Summary/Plan Comment DC Time >30 min.: Yes (arranging outpatient biopsy, discussed plan of care with Dr Sadler) - Patient Data Vitals - Most Recent: Last Vital Signs Temp 98.6 F 04/12/20 09:23 Pulse 85 04/12/20 09:23 Resp 16 04/12/20 09:23 BP 120/65 04/12/20 09:23 Pulse Ox 94 L 04/12/20 09:23 Weight - Most Recent: 122.198 kg I&O - Last 24 hours: Intake & Output 04/11/20 04/12/20 04/12/20 22:59 06:59 14:59 Intake Total 540 400 Output Total 250 1050 Balance 290 -650 Med Orders - Current: Current Medications Docusate Sodium (Colace) 100 mg PO BID PRN PRN Reason: Constipation Last Admin: 04/11/20 20:00 Dose: 100 mg Heparin Sodium (Porcine) (Heparin Sodium) 5,000 units SUBCUT Q8H [facility] Last Admin: 04/12/20 04:31 Dose: 5,000 units Ceftriaxone Sodium/Dextrose 1 (gm/ Premix) 50 mls @ 100 mls/hr IV Q24H [facility] Last Admin: 04/11/20 16:53 Dose: 100 mls/hr Lorazepam (Ativan) 1 mg PO BEDTIME PRN PRN Reason: Insomnia Last Admin: 04/09/20 01:23 Dose: 1 mg Nystatin (Nystop) 1 gm TOP TID [facility] Last Admin: 04/12/20 04:59 Dose: 1 applic Discontinued Medications Sodium Chloride (Normal Saline) 1,000 mls @ 75 mls/hr IV Q13H [facility] Stop: 04/09/20 05:29 Last Admin: 04/08/20 18:01 Dose: 75 mls/hr - Exam General: Reports: Alert, Oriented, Cooperative Lungs: Reports: Clear to Auscultation, Normal Respiratory Effort Cardiovascular: Reports: Regular Rate, Regular Rhythm GI/Abdominal Exam: Normal Bowel Sounds, Soft, Non-Tender Skin: Reports: Rash (ruby with cellulitis noted to abdominal fold Improving. ) Neurological: Reports: Other (intermittent confusion noted. reports this is better) Psy/Mental Status: Reports: Alert, Normal Affect, Normal Mood
--- NOTE | 2020-04-14 10:21 | ECHO ---
EXAM DATE: 04/08/20 PATIENT'S AGE: 74 The ECHO report has been scanned into [employer] and can be seen in this patient's EMR (Electronic Medical Record) under the REPORTS section. The report has also been scanned into PACS. SHANA
== END 2020-04-12 12:20 | disposition home health service (06) | DRG 603 ==
LOC: MW.MS 14:45
PROVIDERS: ADMIT Internal Medicine; ATTEND Internal Medicine
DX: L03.311 Cellulitis of abdominal wall (principal); N39.0 Urinary tract infection, site not specified; E83.52 Hypercalcemia; B37.9 Candidiasis, unspecified; M19.90 Unspecified osteoarthritis, unspecified site; Z96.643 Presence of artificial hip joint, bilateral; Z96.653 Presence of artificial knee joint, bilateral; R91.8 Other nonspecific abnormal finding of lung field; K76.9 Liver disease, unspecified; Z79.82 Long term (current) use of aspirin; Z79.899 Other long term (current) drug therapy; Z87.440 Personal history of urinary (tract) infections; Z90.710 Acquired absence of both cervix and uterus
CPT/HCPCS: 36415; 71250; 71250-26; 74176; 74176-26; 76705; 76705-26; 80048; 80053; 83690; 83880; 83970; 84443; 85025; 85027; 85610; 93306; 93970; 93970-26; 97161-GP; 97530-GP; A9270-GY; J0696; J1644; J7030